=== PATIENT | female | born 1935 | race Caucasian/White ===

== ENCOUNTER → 2017-05-06 | Outpatient (CLI) | payer OTHER ==
[~2017-05-06] VITALS: Ht 160 cm; Wt 95.0 kg
[~2017-05-06] MED LIST: ALEVE LIQUID G220 MG PO; ALEVE220 MG PO; ASPIR-LOW81 MG PO; ASPIRIN EC325 MG PO; ASPIRIN325 MG PO; ASPIRIN81 M2 PO; Aleve PO; CALCIUM600 M1 PO; CALTRATE 600600 MG PO; CARDIZEM CD,CA180 MG PO; CELEBREX200 MG PO; CELECOXIB200 MG PO; COLACE100 MG PO; Calcium Carbonate,Ca PO; Colace PO; ELIQUIS5 MG PO; FEOSOL325 MG PO; Feosol PO; HYDROCODON-ACE1 EAC7 PO; KEFLEX500 MG PO; Keflex PO; LASIX20 MG PO; LASIX40 MG PO; LECITHIN-191200 MG PO; LO-DOSE ASPIRIN81 M1 PO; Lasix PO; Lecithin PO; METOPROLOL SUCC50 MG PO; MEVACOR10 MG PO; MEVACOR20 MG PO; Mevacor PO; NORVASC5 MG PO; Norvasc PO; PRILOSEC OTC20 MG PO; PriLOSEC PO; RECLAST5 MG/100 M IV; SENNA-TIME S T1 EACH PO; ZESTRIL10 MG PO; Zestril,Prinivil PO
[2017-05-06 09:50] VITALS: BP 139/75
== END | disposition home or self-care (01) ==
LOC: IVINF 09:42
DX: M81.0 Age-related osteoporosis without current pathological fracture (principal)
CPT/HCPCS: 96365; J3489